=== PATIENT | female | born 1995 | race Caucasian/White ===

== ENCOUNTER 2019-05-14 04:31 | Emergency (ER) | payer OTHER ==
[~2019-05-14] VITALS: Ht 170.2 cm; Wt 72.6 kg
[~2019-05-14 04:31] MED LIST: MACROBID 100 M100 M1 PO; PRENATAL
[2019-05-14 04:39] VITALS: BP 110/67
[2019-05-14] MEDS ORDERED: Magic Mouthwash SWISH&SPIT (04:44)
[2019-05-14] MEDS ORDERED: AMOXICILLIN500 M1 PO (04:44)
== END 2019-05-14 04:50 | disposition home or self-care (01) ==
LOC: M.ERS 04:31
DX: J02.9 Acute pharyngitis, unspecified (principal)